=== PATIENT | female | born 1955 | race Caucasian/White ===

== ENCOUNTER → 2018-03-02 | Outpatient (CLI) | payer OTHER ==
--- NOTE | 2018-03-02 15:09 | US ---
EXAMINATION TYPE: US venous doppler duplex LE LT DATE OF EXAM: 03/02/2018 2:43 PM COMPARISON: CLINICAL HISTORY: M79.89Other specified soft tissue M79.605,. Swelling. No hx of blood clots. No bl ood thinners. SIDE PERFORMED: Left TECHNIQUE: The lower extremity deep venous system is examined utilizing real time linear array sonog patrick with graded compression, doppler sonography and color-flow sonography. VESSELS IMAGED: External Iliac Vein (EIV) Common Femoral Vein Deep Femoral Vein Greater Saphenous Vein * Femoral Vein Popliteal Vein Small Saphenous Vein * Proximal Calf Veins (* superficial vessels) Limited exam due to patient body habitus Grayscale, color doppler, spectral doppler imaging performed of the deep veins of the lower extremity . There is normal flow, compressibility, vascular waveforms. Left Leg: Negative for acute DVT IMPRESSION: No evidence for DVT at this time
== END | disposition home or self-care (01) ==
LOC: RADUSWWP 14:05
PROVIDERS: ATTEND Family Medicine
DX: M79.605 Pain in left leg (principal); M79.89 Other specified soft tissue disorders

== ENCOUNTER → 2018-04-17 | Outpatient (CLI) | payer OTHER ==
--- NOTE | 2018-04-18 08:10 | US ---
EXAMINATION TYPE: US kidneys/renal and bladder DATE OF EXAM: 04/17/2018 COMPARISON: NONE CLINICAL HISTORY: Abnormal kidney function R94.4 Leg swelling M79.89. Recent abnormal labs EXAM MEASUREMENTS: Right Kidney: 9.2 x 4.4 x 3.8 cm Left Kidney: 10.0 x 5.0 x 4.6 cm Morbidly obese pt, difficult exam, limited visualization Right Kidney: Visualized portions appeared wnl Left Kidney: Visualized portions appeared wnl Bladder: Visualized portions appeared wnl Bilateral Jets seen: No No hydronephrosis or nephrolithiasis. IMPRESSION: No hydronephrosis or nephrolithiasis.
== END | disposition home or self-care (01) ==
LOC: RADUSWWP 15:24
PROVIDERS: ATTEND Family Medicine
DX: M79.89 Other specified soft tissue disorders (principal); R94.4 Abnormal results of kidney function studies
CPT/HCPCS: 76770

== ENCOUNTER → 2022-02-03 | Outpatient (CLI) | payer MEDICARE, OTHER ==
--- NOTE | 2022-02-03 15:45 | US ---
EXAMINATION TYPE: US thyroid st tissue head/neck DATE OF EXAM: 02/03/2022 COMPARISON: NONE CLINICAL HISTORY: E03.9,HYPOTHYROIDISM,R13.13 DYSPHAGIA, PHARYNGEAL. GLAND SIZE: Right Lobe: 3.7 x 1.0 x 1.1 cm Overall Parenchyma: heterogeneous Left Lobe: 2.8 x 1.3 x 0.9 cm Overall Parenchyma: Isthmus Thickness: 0.3 cm NODULES RIGHT: # of nodules measured on right: 1 1. 1.1 x 01.0 x 1.1 cm, mid, hyperechoic nodule, which is wider than tall, with margins, without ech ogenic foci. No prior LEFT: # of nodules measured on left: 0 ISTHMUS: # of nodules measured in the isthmus: 0 Bilateral neck scanned, no evidence of lymphadenopathy. Morbidly obese patient with large thick neck. Patient had to sit up for exam. Technically difficult. IMPRESSION: Mildly suspicious nodule. Consider follow-up exam. 2017 ACR TI-RADS LEVEL: TR-RADS 3 - Mildly Suspicious: Follow if > 1.5 cm, FNA if > 2.5 cm *Highest TI-RADS level nodule reported
== END | disposition home or self-care (01) ==
LOC: RADUSWWP 12:13
PROVIDERS: ATTEND Family Medicine
DX: E03.9 Hypothyroidism, unspecified (principal); R13.13 Dysphagia, pharyngeal phase
CPT/HCPCS: 76536